=== PATIENT | male | born 1995 | race Caucasian/White ===

== ENCOUNTER 2020-10-20 21:55 | Emergency (ER) | payer BC, OTHER ==
[~2020-10-20] VITALS: Ht 176.7 cm; Wt 63.5 kg
[~2020-10-20 21:55] MED LIST: HYDR1TAB8 OP; LEVO500T69 PO; ONDAN4ODT PO; TMSL.4C PO
--- NOTE | 2020-10-20 22:14 | ED Abdominal Pain ---
General Chief Complaint: Abdominal/GI Problems Stated Complaint: RLQ PAIN, BACK PAIN Source of Information: Patient Exam Limitations: No Limitations (NICANOR HAYDEN APRN) History of Present Illness Date Seen by Provider: Oct 20, 2020 Time Seen by Provider: 22:12 Initial Comments To ER with reports of severe sudden onset right flank and lower abdomen pain. History of kidney stones and this feels similar. This began about 1 hour prior to arrival. States he had a multitude of these, last time he had when he went to [place], fentanyl was not helpful but hydromorphone was. Timing/Duration: 1 Hour Severity/Quality: Moderate Location: RLQ Radiation: No Radiation Activities at Onset: None Associated Symptoms: Denies Symptoms (NICANOR HAYDEN APRN) Allergies and Home Medications Allergies Coded Allergies: No Known Drug Allergies (Unverified , 01/08/13) Home Medications Ciprofloxacin HCl 500 Mg Tablet, 500 MG PO BID Prescribed by: LYRIC MITCHELL on 10/21/20139 Hydrocodone Bit/Acetaminophen 1 Ea Tablet, 1 EA PO Q4-6 PRN for PAIN Prescribed by: LYRIC MITCHELL on 10/21/20139 Hydrocodone Bit/Ibuprofen 1 Each Tablet, 1-2 EACH OP Q 4 - 6 HRS PRN FOR PAIN Prescribed by: LYRIC MITCHELL on 01/08/13301 Ketorolac Tromethamine 10 Mg Tablet, 10 MG PO Q6H Prescribed by: LYRIC MITCHELL on 10/21/20139 Levofloxacin 500 Mg Tab, 1 EACH PO DAILY FOR INFECTION Prescribed by: LYRIC MITCHELL on 01/08/13301 Ondansetron 4 Mg Tab.rapdis, 4 MG PO Q4H Prescribed by: LYRIC MITCHELL on 10/21/20139 Ondansetron Hcl 4 Mg Tab, 4 MG PO Q4H FOR NAUSEA AND VOMITING Prescribed by: LYRIC MITCHELL on 01/08/13301 Tamsulosin HCl 0.4 Mg Cap, 0.4 MG PO DAILY Prescribed by: LYRIC MITCHELL on 10/21/20139 Tamsulosin Hcl 0.4 Mg Cap.sr.24h, 1 CAP PO DAILY Prescribed by: LYRIC MITCHELL on 01/08/13 030 Patient Home Medication List Home Medication List Reviewed: Yes (NICANOR HAYDEN APRN) Review of Systems Review of Systems Constitutional: see HPI; No chills, No fever EENTM: No Symptoms Reported Respiratory: No Symptoms Reported Cardiovascular: No Symptoms Reported Gastrointestinal: See HPI, Abdominal Pain Genitourinary: No Symptoms Reported Musculoskeletal: no symptoms reported Skin: no symptoms reported Psychiatric/Neurological: No Symptoms Reported Endocrine: No Symptoms Reported Hematologic/Lymphatic: No Symptoms Reported (NICANOR HAYDEN APRN) Past Fgtwtqf-Rcjljn-Bnqbop Hx Patient Social History Recent Foreign Travel: No Contact w/Someone Who Travel: No (NICANOR HAYDEN APRN) Past Medical History Reproductive Disorders: No Sexually Transmitted Disease: No HIV/AIDS: No Adverse Reaction/Blood Tranf: No (NICANOR HAYDEN APRN) Physical Exam Vital Signs Capillary Refill : (NICANOR HAYDEN APRN) Height/Weight/BMI Height: '" Weight: lbs. oz. kg; BMI Method:Stated General Appearance: WD/WN, no apparent distress Respiratory: no respiratory distress, no accessory muscle use Gastrointestinal: normal bowel sounds, non tender, soft Extremities: normal range of motion, non-tender Back: CVA tenderness (L) Neurologic/Psychiatric: alert, normal mood/affect, oriented x 3 Skin: normal color, warm/dry (NICANOR HAYDEN APRN) Progress/Results/Core Measures Results/Orders Lab Results Laboratory Tests Test 10/20/20 22:10 10/20/20 22:15 Range/Units White Blood Count 7.9 4.3-11.0 10^3/uL Red Blood Count 4.91 4.30-5.52 10^6/uL Hemoglobin 14.7 13.3-17.7 g/dL Hematocrit 43 40-54 % Mean Corpuscular Volume 87 80-99 fL Mean Corpuscular Hemoglobin 30 25-34 pg Mean Corpuscular Hemoglobin Concent 34 32-36 g/dL Red Cell Distribution Width 12.4 10.0-14.5 % Platelet Count 175 130-400 10^3/uL Mean Platelet Volume 9.3 9.0-12.2 fL Immature Granulocyte % (Auto) 0 % Neutrophils (%) (Auto) 36 L 42-75 % Lymphocytes (%) (Auto) 55 H 12-44 % Monocytes (%) (Auto) 6 0-12 % Eosinophils (%) (Auto) 2 0-10 % Basophils (%) (Auto) 1 0-10 % Neutrophils # (Auto) 2.8 1.8-7.8 10^3/uL Lymphocytes # (Auto) 4.3 H 1.0-4.0 10^3/uL Monocytes # (Auto) 0.5 0.0-1.0 10^3/uL Eosinophils # (Auto) 0.2 0.0-0.3 10^3/uL Basophils # (Auto) 0.1 0.0-0.1 10^3/uL Immature Granulocyte # (Auto) 0.0 0.0-0.1 10^3/uL Sodium Level 144 135-145 MMOL/L Potassium Level 3.7 3.6-5.0 MMOL/L Chloride Level 104 98-107 MMOL/L Carbon Dioxide Level 25 21-32 MMOL/L Anion Gap 15 H 5-14 MMOL/L Blood Urea Nitrogen 14 7-18 MG/DL Creatinine 1.46 H 0.60-1.30 MG/DL Estimat Glomerular Filtration Rate 58 BUN/Creatinine Ratio 10 Glucose Level 104 70-105 MG/DL Calcium Level 9.4 8.5-10.1 MG/DL Urine Color YELLOW Urine Clarity CLOUDY Urine pH 7.0 5-9 Urine Specific [place] 1.020 1.016-1.022 Urine Protein NEGATIVE NEGATIVE Urine Glucose (UA) NEGATIVE NEGATIVE Urine Ketones NEGATIVE NEGATIVE Urine Nitrite NEGATIVE NEGATIVE Urine Bilirubin NEGATIVE NEGATIVE Urine Urobilinogen 0.2 < = 1.0 MG/DL Urine Leukocyte Esterase NEGATIVE NEGATIVE Urine RBC (Auto) 3+ H NEGATIVE Urine RBC >100 H /HPF Urine WBC NONE /HPF Urine Crystals PRESENT H /LPF Urine Amorphous Sediment LARGE KARINA URATES H /LPF Urine Bacteria FEW H /HPF Urine Casts NONE /LPF Urine Mucus NEGATIVE /LPF Urine Culture Indicated NO Urine Opiates Screen NEGATIVE NEGATIVE Urine Oxycodone Screen NEGATIVE NEGATIVE Urine Methadone Screen NEGATIVE NEGATIVE Urine Propoxyphene Screen NEGATIVE NEGATIVE Urine Barbiturates Screen NEGATIVE NEGATIVE Ur Tricyclic Antidepressants Screen NEGATIVE NEGATIVE Urine Phencyclidine Screen NEGATIVE NEGATIVE Urine Amphetamines Screen NEGATIVE NEGATIVE Urine Methamphetamines Screen NEGATIVE NEGATIVE Urine Benzodiazepines Screen NEGATIVE NEGATIVE Urine Cocaine Screen NEGATIVE NEGATIVE Urine Cannabinoids Screen NEGATIVE NEGATIVE (PAULA,LYRIC K DO) My Orders Orders - PAULA,LYRIC K DO Ketorolac Injection (Toradol Injection) (10/21/20 01:45) Hydrocodone/Apap 10/325 Tablet (Lortab 1 (10/21/20 01:45) Tamsulosin Capsule (Flomax Capsule) (10/21/20 01:45) Rx-Hydrocodone/Apap 5-325 Mg (Rx-Vicodin (10/21/20 01:45) Rx-Ondansetron Po (Rx-Zofran Po) (10/21/20 01:35) (PAULALYRIC K DO) Medications Given in ED Current Medications Medications Dose Ordered Sig/Prakash Route Start Time Stop Time Status Last Admin Dose Admin Acetaminophen/ Hydrocodone Bitart 1 ea ONCE ONCE PO 10/21/20 01:45 10/21/20 01:46 DC 10/21/20 01:55 1 EA Acetaminophen/ Hydrocodone Bitart 1 ea Q4H PRN PO 10/21/20 01:45 10/21/20 02:04 DC 10/21/20 02:00 1 EA Hydromorphone HCl 0.5 mg ONCE ONCE IV 10/20/20 22:45 10/20/20 22:46 DC 10/20/20 22:40 0.5 MG Ketorolac Tromethamine 15 mg ONCE ONCE IVP 10/20/20 22:15 10/20/20 22:16 DC 10/20/20 22:25 15 MG Ketorolac Tromethamine 30 mg ONCE ONCE IVP 10/21/20 01:45 10/21/20 01:46 DC 10/21/20 01:55 30 MG (PAULA,LYRIC K DO) Progress Progress Note : Progress Note 2300--ASSUMED CARE FROM [facility]AY[facility], CT PENDING. ER VERY BUSY, LONG WAIT TIME TO OBTAIN CT SCAN. PT STATES HAS NEVER FOLLOWED UP WITH A UROLOGIST AT ANY TIME, DESPITE HAVING HAD KIDNEY STONES IN THE PAST--HAS ONLY GONE TO ER'S, AND NEVER FOLLOWED UP WITH ANYONE AT ANY TIME FOR THIS PROBLEM. ADVISED PT ABOUT THE IMPORTANCE OF FOLLOW UP WITH UROLOGIST NEXT WEEK FOR THIS PROBLEM--DR. MASTERS'S INFORMATION GIVEN TO PT. PAIN IS IMPROVED AT TIME OF DISMISSAL--PT WAS GIVEN ADDITIONAL TORADOL AND PO HYDROCODONE WELL FLOMAX (PAULA,LYRIC K DO) Diagnostic Imaging Comments CT ABDOMEN/PELVIS--6 MM MID TO DISTAL RIGHT URETERAL STONE WITH MILD TO MODERATE PROXIMAL RIGHT HYDROURETERONEPHROSIS--PER [facility] VIA FAX AT [id number] Reviewed: Reviewed by Me (LYRIC MITCHELL DO) Departure Impression Primary Impression: Right ureteral calculus Disposition: HOME, SELF-CARE Condition: Improved Departure-Patient Inst. Referrals: NO,LOCAL PHYSICIAN (PCP) Primary Care Physician KARO MASTERS MD Patient Instructions: Kidney Stones (DC) Add. Discharge Instructions: STRAIN ALL URINE--RETURN ANY STONES TO UROLOGIST LOTS OF CLEAR LIQUIDS FOLLOW UP WITH DR. MASTERS NEXT WEEK FOR FURTHER CARE, RETURN TO ER IF WORSE All discharge instructions reviewed with patient and/or family. Voiced understanding. Scripts Ketorolac Tromethamine (Ketorolac Tromethamine) 10 Mg Tablet 10 MG PO Q6H for Pain, #15 TAB Prov: PAULALYRIC Marybeth LOAIZA 10/21/20 Hydrocodone Bit/Acetaminophen (HYDROcodone/APAP 7.5/325 TAB) 1 Ea Tablet 1 EA PO Q4-6 PRN for PAIN, #20 TAB Prov: LYRIC MITCHELL DO 10/21/20 Ondansetron (Ondansetron Odt) 4 Mg Tab.rapdis 4 MG PO Q4H for Nausea/Vomiting, #10 TAB Prov: PAULALYRIC Marybeth LOAIZA 10/21/20 Tamsulosin HCl (Flomax) 0.4 Mg Cap 0.4 MG PO DAILY, #10 CAP Prov: LYRIC MITCHELL DO 10/21/20 Ciprofloxacin HCl (Ciprofloxacin HCl) 500 Mg Tablet 500 MG PO BID, #14 TAB Prov: PAULALYRIC Marybeth LOAIZA 10/21/20 NICANOR HAYDEN APRN Oct 20, 2020 22:14 LYRIC MITCHELL DO Oct 21, 2020 01:40
[2020-10-20] MEDS ORDERED: KETOROLAC 30 MG/ML VIAL IVP ONE (22:15)
[2020-10-20] MEDS ORDERED: NS IV 1000 ML 1,000 ML IV SCH (22:15)
[2020-10-20 22:20] LABS: BASOPHILS # (AUTO) 0.1 10^3/uL (0.0-0.1); BASOPHILS % (AUTO) 1 % (0-10); EOSINOPHILS # (AUTO) 0.2 10^3/uL (0.0-0.3); EOSINOPHILS % (AUTO) 2 % (0-10); HEMATOCRIT 43 % (40-54); HEMOGLOBIN 14.7 g/dL (13.3-17.7); LYMPHOCYTES # (AUTO) 4.3 10^3/uL (1.0-4.0); LYMPHOCYTES % (AUTO) 55 % (12-44); MEAN CORPUSCULAR HEMOGLOBIN 30 pg (25-34); MEAN CORPUSCULAR HGB CONC 34 g/dL (32-36); MEAN CORPUSCULAR VOLUME 87 fL (80-99); MEAN PLATELET VOLUME 9.3 fL (9.0-12.2); MONOCYTES # (AUTO) 0.5 10^3/uL (0.0-1.0); MONOCYTES % (AUTO) 6 % (0-12); NEUTROPHILS # (AUTO) 2.8 10^3/uL (1.8-7.8); NEUTROPHILS % (AUTO) 36 % (42-75); PLATELET COUNT 175 10^3/uL (130-400); WHITE BLOOD COUNT 7.9 10^3/uL (4.3-11.0)
[2020-10-20 22:21] LABS: BILIRUBIN,URINE NEGATIVE (NEGATIVE); CLARITY,URINE CLOUDY; COLOR,URINE YELLOW; GLUCOSE, URINE (UA) NEGATIVE (NEGATIVE); KETONES,URINE NEGATIVE (NEGATIVE); LEUKOCYTE ESTERASE ,URINE NEGATIVE (NEGATIVE); NITRITE,URINE NEGATIVE (NEGATIVE); PROTEIN,URINE NEGATIVE (NEGATIVE)
[2020-10-20 22:35] LABS: POTASSIUM 3.7 MMOL/L (3.6-5.0)
[2020-10-20 22:36] LABS: CALCIUM 9.4 MG/DL (8.5-10.1)
[2020-10-20 22:40] LABS: CREATININE SERUM 1.46 MG/DL (0.60-1.30)
[2020-10-20 22:41] LABS: BACTERIA,URINE FEW /HPF; RBC,URINE >100 /HPF
[2020-10-20 22:42] LABS: AMORPHOUS SEDIMENT,UR LARGE AMOR URATES /LPF
[2020-10-20] MEDS ORDERED: HYDROmorphone 2 MG/ML VIAL (DILAUDID) IV ONE (22:45)
[2020-10-20 22:59] LABS: AMPHETAMINE SCREEN, URINE NEGATIVE (NEGATIVE); BARBITURATE SCREEN URINE NEGATIVE (NEGATIVE); BENZODIAZEPINES SCREEN URINE NEGATIVE (NEGATIVE); CANNABINOID SCREEN, URINE NEGATIVE (NEGATIVE); COCAINE SCREEN URINE NEGATIVE (NEGATIVE); METHADONE STAT NEGATIVE (NEGATIVE); METHAMPHETAMINE SCREEN URINE S NEGATIVE (NEGATIVE); OPIATE SCREEN URINE NEGATIVE (NEGATIVE); OXYCODONE STAT NEGATIVE (NEGATIVE); PROPOXYPHENE STAT NEGATIVE (NEGATIVE); TRICYCLIC ANTIDEPRESSANTS SCRE NEGATIVE (NEGATIVE)
[2020-10-21] MEDS ORDERED: RX-ONDANSETRON 4 MG ODT (ZOFRAN) PPK #4 PO STA (01:35)
[2020-10-21] MEDS ORDERED: CIPR500T4 PO (01:40)
[2020-10-21] MEDS ORDERED: HYDR-34 PO (01:40)
[2020-10-21] MEDS ORDERED: KETO10TA PO (01:40)
[2020-10-21] MEDS ORDERED: ONDA4TAB11 PO (01:40)
[2020-10-21] MEDS ORDERED: TMSL.4C PO (01:40)
[2020-10-21] MEDS ORDERED: RX-HYDROCODONE/APAP 5/325 MG #4 TAB PK PO PRN (01:45)
[2020-10-21] MEDS ORDERED: HYDROcodone/APAP 10 MG/325 MG (LORTAB) TAB PO ONE (01:45)
[2020-10-21] MEDS ORDERED: TAMSULOSIN 0.4 MG (FLOMAX) CAP PO SCH (01:45)
[2020-10-21] MEDS ORDERED: KETOROLAC 30 MG/ML VIAL IVP ONE (01:45)
[2020-10-21 02:00] VITALS: BP 112/68
--- NOTE | 2020-10-21 05:51 | Diagnostic Imaging Report ---
EXAMINATION: AP supine abdomen INDICATION: Right lower quadrant abdominal pain and back pain. COMPARISON: Prior abdominal radiograph performed in [address] scan performed same day. FINDINGS: Nonobstructive bowel gas pattern. Scattered gas and stool is noted in the colon. No unusual stool burden. No organomegaly. There is a 5 mm rounded calcific density overlying the right superior sacrum, corresponding to findings on CT scan. No acute osseous abnormality is identified. IMPRESSION: 5 mm rounded ossific density overlying the right sacrum likely corresponds to right ureteral stone seen on CT. Nonobstructive bowel gas pattern. Dictated by: Dictated on workstation # [id number]
--- NOTE | 2020-10-21 06:25 | Diagnostic Imaging Report ---
PROCEDURE: CT urinary tract, rule out kidney stone. TECHNIQUE: Multiple contiguous axial images were obtained through the abdomen and pelvis without the use of intravenous contrast. Auto Exposure Controls were utilized during the CT exam to meet ALARA standards for radiation dose reduction. INDICATION: Right lower quadrant abdominal pain and back pain. COMPARISON: Prior CT scan performed on 01/08/2013. FINDINGS: Absence of intravenous contrast decreases sensitivity for detection of lymphadenopathy, focal lesions and vascular pathology. Lung bases are clear and the visualized heart is normal in size. The liver, gallbladder, spleen, pancreas and adrenal glands are normal. There is moderate right hydroureteronephrosis, with prominence of the right ureter up to the level of a 5 mm calculus in the distal ureter. A punctate calyceal calculus is demonstrated in the upper pole collecting system of the right kidney. There is no renal calculus or hydronephrosis on the left. There is no significant perinephric stranding. The visualized left ureter is normal. Stomach and duodenum are normal. The small bowel and colon are normal in course and caliber, without evidence of wall thickening or obstruction. The appendix is not definitely visualized. There are no findings to suggest acute appendicitis. There is no pneumoperitoneum, abdominal free fluid or loculated collection. No lymphadenopathy is appreciated. The aorta is nonaneurysmal. The bladder is normal. Prostate gland is not enlarged. The abdominal wall is unremarkable. No acute osseous abnormality is identified. IMPRESSION: There is a 5 mm calculus in the distal right ureter, which causes moderate right hydroureteronephrosis. Additional nonobstructing calyceal calculus is demonstrated in the right upper pole collecting system. There is no renal calculus or hydroureteronephrosis on the left and there are no other acute findings in the abdomen or pelvis. Findings are in agreement with initial teleradiology report. Dictated by: Dictated on workstation # [id number]
== END 2020-10-21 02:04 | disposition home or self-care (01) ==
LOC: EDUNIT# 21:55 → ER 21:59
DX: N13.2 Hydronephrosis with renal and ureteral calculous obstruction (principal)
CPT/HCPCS: 36415; 74018; 74176; 80048; 80306; 81000; 85025